=== PATIENT | female | born 1995 | race Caucasian/White ===

== ENCOUNTER 2016-11-11 21:07 | Emergency (ER) | payer BC ==
[2016-11-11 22:12] VITALS: BP 109/73
--- NOTE | 2016-11-11 22:24 | UC ---
Complaint Female HPI - HPI Summary HPI Summary: pt presents with c/o dysuria X 7 days, low back and pelvic discomfort. Also, c/ o of brwonish colored vaginal discharge that is "smelly". Denies exposure recent exposure to STD's , reports that she is sexually active but at risk for or STD's - History Of Current Complaint Stated Complaint: URINARY COMPLAINT Time Seen by Provider: 11/11/16 21:58 Hx Obtained From: Patient Hx Last Menstrual Period: 1 wk ago ?: No Onset/Duration: Gradual Onset, Lasting Days Timing: Constant Severity Initially: Mild Severity Currently: Mild Character: Burning Aggravating Factor(s): Urination Associated Signs And Symptoms: Positive: Vaginal Discharge - brown - Allergies/Home Medications Allergies/Adverse Reactions: Allergies Allergy/AdvReac Type Severity Reaction Status Date / Time Carrot Oil Allergy Swelling Verified 11/11/16 22:06 Of Face,Lips,& Throat Raspberry Allergy Hives Verified 11/11/16 22:06 Home Medications: Home Medications Multiple Vitamins W/ Minerals [Multivitamin Gummies Wome] 1 chw PO DAILY [History Confirmed 11/11/16] Pantoprazole Sodium [Protonix] 20 mg PO DAILY 11/11/16 [History Confirmed ] Sertraline* [Zoloft*] 75 mg PO DAILY 11/11/16 [History Confirmed 11/11/16] PMH/Surg Hx/FS Hx/Imm Hx Previously Healthy: Yes Cardiovascular History Of: Reports: Cardiac Disorders - 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 GI/ History Of: Reports: Kidney Stones - Surgical History Surgical History: None - Family History Known Family History: Positive: Other - positive [facility] for URI - Social History Alcohol Use: Weekly Alcohol Amount: 10 Substance Use Type: Marijuana Substance Use Comment - Amount & Last Used: last used today Smoking Status (MU): Never Smoked Tobacco Review of Systems Constitutional: Negative Skin: Negative Eyes: Negative ENT: Negative Respiratory: Negative Cardiovascular: Negative Gastrointestinal: Other - low back ache, Genitourinary: Dysuria, Other - vaginal discharge Motor: Negative Neurovascular: Negative Musculoskeletal: Negative Neurological: Negative Psychological: Negative All Other Systems Reviewed And Are Negative: Yes Physical Exam Triage Information Reviewed: Yes Appearance: Well-Appearing Vital Signs: Initial Vital Signs Temp 98.3 F 11/11/16 22:08 Pulse 79 11/11/16 22:08 Resp 16 11/11/16 22:08 BP 109/73 11/11/16 22:08 Pulse Ox 100 11/11/16 22:08 Vital Signs Reviewed: Yes Eye Exam: Normal Neck exam: Normal Respiratory Exam: Normal Cardiovascular Exam: Normal Abdominal Exam: Normal Abdomen Description: Positive: Other: - pt agreed to self swab Affirm Musculoskeletal Exam: Normal Neurological Exam: Normal Psychological Exam: Normal Skin Exam: Normal Complaint Female Dx - Differential Dx/Diagnosis Differential Diagnosis/HQI/PQRI: Sexually Transmitted Disease, Urinary Tract Infection, Other - vaginitis Provider Diagnoses: vaginitis. dysuria Discharge - Discharge Plan Condition: Stable Disposition: HOME Patient Education Materials: Dysuria (ED), Pelvic Pain in Women (ED) Referrals: Non Staff,Doctor [Primary Care Provider] - If Needed (Please follow up with your PCP or return to clinic as needed. )
== END 2016-11-11 22:39 | disposition home or self-care (01) ==
LOC: UCCORT 21:07
DX: N76.0 Acute vaginitis (principal); R30.0 Dysuria; F12.90 Cannabis use, unspecified, uncomplicated
CPT/HCPCS: 81003; 87086; 87480; 87510; 87660; 99201; G0463